=== PATIENT | female | born 1930 | race Caucasian/White ===

== ENCOUNTER → 2017-02-06 | Outpatient (CLI) | payer MEDICARE, OTHER | LOC: US 07:36 | DX: R74.8 Abnormal levels of other serum enzymes (principal); N83.209 Unspecified ovarian cyst, unspecified side | CPT/HCPCS: 76705 ==

== ENCOUNTER 2021-04-28 09:01 | Emergency (ER) | payer MEDICARE, OTHER ==
[~2021-04-28 09:01] MED LIST: AMLODIPINE BESYL5 MG PO; ASPIRIN CHEWABL81 MG PO; BENICAR40 MG PO; BYSTOLIC10 MG PO; CATAPRES0.2 MG PO; CIPRO500 MG PO; FLAGYL500 MG PO; GLUCOTROL 10 MG10 MG PO; IMDUR ER TAB 6060 MG PO; JARDIANCE25 MG PO; LANOXIN125 MCG PO; LANTUS100 UNIT/1 SQ; LIPITOR TAB 2020 MG PO; LISINOPRIL10 MG PO; LOPRESSOR 50 MG50 MG PO; MELATONIN3 MG PO; MIRALAX17 GM PO; NITROGLYCERIN6.5 MG PO; NITROSTAT0.4 MG SL; NORVASC 5 MG TAB5 MG PO; NORVASC10 MG PO; OMNICEF 300 MG300 MG PO; PANTOPRAZOLE SO40 MG PO; PLAVIX 75 MG TA75 MG PO; SYNTHROID125 MCG PO; TOLTERODINE TART4 MG PO; TOUJEO MAX300 UNIT/1 SQ; XANAX 0.25 MG0.25 MG PO
[2021-04-28 11:37] LABS: HEMOGLOBIN 15.9 gm/dl (12.3-15.3); RED BLOOD COUNT 5.03 M/UL (4.00-5.10); WHITE BLOOD COUNT 13.4 K/UL (4.5-11.0)
[2021-04-28 12:10] LABS: BUN/CREATININE RATIO 15 (0-10)
[2021-04-28] MEDS ORDERED: CEFDINIR300 MG PO (16:14)
[2021-04-28] MEDS ORDERED: MECLIZINE HCL25 MG PO (16:14)
[2021-04-28] MEDS ORDERED: ONDANSETRON ODT4 MG SL (16:14)
== END 2021-04-28 16:56 | disposition home or self-care (01) ==
LOC: ER1 09:01
PROVIDERS: Emergency Medicine
DX: N39.0 Urinary tract infection, site not specified (principal); I11.0 Hypertensive heart disease with heart failure; I50.9 Heart failure, unspecified; E11.9 Type 2 diabetes mellitus without complications; Z86.73 Personal history of transient ischemic attack (TIA), and cerebral infarction without residual deficits; Z88.2 Allergy status to sulfonamides; Z90.89 Acquired absence of other organs
CPT/HCPCS: 70450; 71045; 80053; 81001; 82550; 82553; 83874; 84484; 85025; 93005; 99285; J7030

== ENCOUNTER 2021-06-27 09:24 | Emergency (ER) | payer MEDICARE, OTHER ==
[~2021-06-27 09:24] MED LIST changes: +CEFDINIR300 MG PO; +MECLIZINE HCL25 MG PO; +ONDANSETRON ODT4 MG SL
[2021-06-27 10:22] LABS: HEMOGLOBIN 13.8 gm/dl (12.3-15.3); RED BLOOD COUNT 4.45 M/UL (4.00-5.10); WHITE BLOOD COUNT 12.7 K/UL (4.5-11.0)
[2021-06-27 10:45] LABS: BUN/CREATININE RATIO 15 (0-10)
[2021-06-27] MEDS ORDERED: MACROBID 100 M100 MG PO (14:51)
== END 2021-06-27 15:33 | disposition home or self-care (01) ==
LOC: ER1 09:24
PROVIDERS: Physician Assistant
DX: R55 Syncope and collapse (principal); N39.0 Urinary tract infection, site not specified; E87.6 Hypokalemia
CPT/HCPCS: 70450; 71045; 80053; 81001; 82550; 82553; 83874; 84484; 85025; 93005; 96374; 99285; J2405; J7040

== ENCOUNTER → 2021-07-25 | Outpatient (CLI) | payer MEDICARE, OTHER ==
[~2021-07-25] MED LIST changes: +MACROBID 100 M100 MG PO
== END ==
LOC: EXRD 11:29
DX: I65.29 Occlusion and stenosis of unspecified carotid artery (principal); R42 Dizziness and giddiness; R55 Syncope and collapse
CPT/HCPCS: 93880